=== PATIENT | female | born 1995 | race Caucasian/White ===

== ENCOUNTER → 2023-09-21 | Outpatient (CLI) | payer MEDICAID | LOC: LAB.N 08:30 | PROVIDERS: ATTEND Family Medicine | DX: F41.1 Generalized anxiety disorder (principal); F31.81 Bipolar II disorder ==

== ENCOUNTER 2023-10-14 08:00 | Outpatient (CLI) | payer MEDICAID ==
[2023-10-14 13:00] LABS: ALBUMIN 4.3 g/dL (3.2-5.5); ALBUMIN/GLOBULIN RATIO 1.5 (1.0-2.2); ALKALINE PHOSPHATASE 69 IU/L (42-121); ALT ALANINE AMINOTRANSFERASE 16 IU/L (10-60); AST ASPARTATE AMINOTRANSFERASE 13 IU/L (10-42); BILIRUBIN,TOTAL 0.4 mg/dL (0.2-1.0); BUN - BLOOD UREA NITROGEN 10 mg/dL (6-20); CALCIUM 9.2 mg/dL (8.5-10.3); CARBON DIOXIDE - CO2 22 mmol/L (21-32); CHLORIDE 107 mmol/L (101-111); CHOL/HDL RATIO 3.8 (<4.4); CHOLESTEROL 145 mg/dL; GFR - MDRD 67 (>89); GLUCOSE 111 mg/dL (74-104); HDL CHOLESTEROL 38 mg/dL; LDL CHOLESTEROL,CALCULATED 88 mg/dL; LDL/HDL RATIO 2.3 (<4.4); SODIUM 137 mmol/L (135-145); TOTAL PROTEIN 7.2 g/dL (6.4-8.9); TRIGLYCERIDES 96 mg/dL (48-352); VLDL CHOLESTEROL 19 mg/dL
[2023-10-14 13:09] LABS: THYROID STIMULATING HORMONE 5.38 uIU/mL (0.34-5.60)
[2023-10-14 13:20] LABS: ESTIMATED AVERAGE GLUCOSE 91 mg/dL (70-100); HEMOGLOBIN A1c% 4.8 % (4.27-6.07)
== END 2023-10-14 08:01 | disposition home or self-care (01) ==
LOC: LAB.N 08:00
PROVIDERS: ATTEND Family Medicine
DX: F41.1 Generalized anxiety disorder (principal); F31.81 Bipolar II disorder
CPT/HCPCS: 36415; 80053; 80061; 83036; 83721; 84443

== ENCOUNTER 2024-01-10 07:48 | Outpatient (CLI) | payer MEDICAID ==
[2024-01-10 12:58] LABS: ESTIMATED AVERAGE GLUCOSE 97 mg/dL (70-100)
[2024-01-10 14:29] LABS: ALBUMIN 4.3 g/dL (3.2-5.5); ALBUMIN/GLOBULIN RATIO 1.3 (1.0-2.2); ALKALINE PHOSPHATASE 62 IU/L (42-121); ALT ALANINE AMINOTRANSFERASE 12 IU/L (10-60); AST ASPARTATE AMINOTRANSFERASE 14 IU/L (10-42); BILIRUBIN,TOTAL 0.3 mg/dL (0.2-1.0); BUN - BLOOD UREA NITROGEN 12 mg/dL (6-20); CALCIUM 9.3 mg/dL (8.5-10.3); CARBON DIOXIDE - CO2 23 mmol/L (21-32); CHLORIDE 109 mmol/L (101-111); CHOL/HDL RATIO 3.9 (<4.4); CHOLESTEROL 131 mg/dL; CREATININE 1.1 mg/dL (0.6-1.3); GFR - MDRD 60 (>89); GLUCOSE 111 mg/dL (74-104); HDL CHOLESTEROL 34 mg/dL; LDL CHOLESTEROL,CALCULATED 67 mg/dL; POTASSIUM 3.9 mmol/L (3.5-4.5); SODIUM 138 mmol/L (135-145); TOTAL PROTEIN 7.5 g/dL (6.4-8.9); TRIGLYCERIDES 148 mg/dL (48-352); VLDL CHOLESTEROL 30 mg/dL
[2024-01-10 14:35] LABS: LITHIUM 0.36 mmol/L
[2024-01-10 14:39] LABS: THYROID STIMULATING HORMONE 4.39 uIU/mL (0.34-5.60)
== END 2024-01-10 07:49 | disposition home or self-care (01) ==
LOC: LAB.N 07:48
PROVIDERS: ATTEND Family Medicine
DX: E05.90 Thyrotoxicosis, unspecified without thyrotoxic crisis or storm (principal); F31.5 Bipolar disorder, current episode depressed, severe, with psychotic features; R11.2 Nausea with vomiting, unspecified; F43.10 Post-traumatic stress disorder, unspecified
CPT/HCPCS: 36415; 80053; 80061; 80178; 83036; 83721; 84443

== ENCOUNTER 2024-02-13 13:28 | Outpatient (CLI) | payer MEDICAID | END 2024-02-13 13:29 | disposition home or self-care (01) | LOC: RT 13:28 | PROVIDERS: ATTEND Registered Nurse | DX: Z79.899 Other long term (current) drug therapy (principal) | CPT/HCPCS: 93005 ==

== ENCOUNTER 2024-05-09 10:30 | Outpatient (CLI) | payer MEDICAID | END 2024-05-09 23:59 | disposition home or self-care (01) | LOC: LAB.R 10:30 → LAB.N 23:59 | PROVIDERS: ATTEND Registered Nurse | DX: F12.10 Cannabis abuse, uncomplicated (principal) | CPT/HCPCS: 80307; 80347; 80348; 80349; 80354; 81599 ==

== ENCOUNTER 2024-05-24 08:48 | Outpatient (CLI) | payer MEDICAID ==
[2024-05-24 12:33] LABS: CHOLESTEROL 159 mg/dL; GLUCOSE,FASTING 108 mg/dL (74-104); HDL CHOLESTEROL 32 mg/dL; LDL CHOLESTEROL,CALCULATED 93 mg/dL; LDL/HDL RATIO 2.9 (<4.4); TRIGLYCERIDES 171 mg/dL; VLDL CHOLESTEROL 34 mg/dL
== END 2024-05-24 08:49 | disposition home or self-care (01) ==
LOC: LAB.N 08:48
PROVIDERS: ATTEND Registered Nurse
DX: Z51.81 Encounter for therapeutic drug level monitoring (principal); Z79.899 Other long term (current) drug therapy
CPT/HCPCS: 36415; 80061; 82947; 83721